=== PATIENT | male | born 1975 | race Caucasian/White ===

== ENCOUNTER 2016-05-26 13:48 | Emergency (ER) | payer BC, OTHER ==
[2016-05-26 13:53] VITALS: BP 155/95; PULSE 90; RESP 20; TEMP 98
[2016-05-26] MEDS ORDERED: methylPREDNISolone SOD SUCCI 125 MG/2 ML VIAL IM ONE (14:09)
--- NOTE | 2016-05-26 14:25 | ED ---
Back Pain HPI - General Chief Complaint: Back Pain/Injury Stated Complaint: Back Pain Time Seen by Provider: 05/26/16 13:57 Source: patient, RN notes reviewed Limitations: no limitations - History of Present Illness Initial Comments: Patient is a 40-year-old male presents to the emergency room for evaluation of low back pain. Patient states he has a history of sciatica. Patient states he woke up on Monday morning with worsening low back pain radiating down his right leg. Patient denies recent heavy lifting or changes in physical activity. Patient does state on Monday night he did twist his back a weird way but did not notice any significant pain. Patient states that he went to [facility] on Monday and was given [place], ibuprofen and Valium. Patient states those medications are not helping his symptoms. Patient states he has an appointment with his primary care provider tomorrow but he needs something to relieve his pain now. Patient denies fecal incontinence. Patient denies urine incontinence. Patient denies saddle anesthesia. Patient denies urinary retention. Patient states he is having pain radiating from the right side of his back down the posterior portion of his leg. Patient denies any numbness or tingling in his legs. - Related Data Home Medications Medication Instructions Recorded Confirmed Diazepam [Valium] 5 mg PO BID 05/26/16 05/26/16 HYDROcodone/APAP 5-325MG [[place] 1 tab PO Q6HR PRN 05/26/16 05/26/16 5-325] Ibuprofen [Motrin] 800 mg PO TID 05/26/16 05/26/16 Previous Rx's Medication Instructions Recorded predniSONE 50 mg PO DAILY #4 tab 05/26/16 Allergies Allergy/AdvReac Type Severity Reaction Status Date / Time No Known Allergies Allergy Verified 05/26/16 13:53 Review of Systems ROS Statement: Those systems with pertinent positive or pertinent negative responses have been documented in the HPI. ROS Other: All systems not noted in ROS Statement are negative. Past Medical History Past Medical History: No Reported History Additional Past Medical History / Comment(s): back pain History of Any Multi-Drug Resistant Organisms: None Reported Past Surgical History: No Surgical Hx Reported Past Psychological History: No Psychological Hx Reported Smoking Status: Current every day smoker Past Alcohol Use History: Occasional Past Drug Use History: None Reported General Exam - General Exam Comments Initial Comments: Laying in exam room, uncomfortable secondary to pain, no acute distress. Limitations: no limitations General appearance: alert, in no apparent distress Head exam: Present: atraumatic, normocephalic, normal inspection Eye exam: Present: normal appearance ENT exam: Present: normal exam Neck exam: Present: normal inspection Respiratory exam: Absent: respiratory distress Extremities exam: Present: normal inspection Back exam: Present: normal inspection, vertebral tenderness (right lumbosacral) Expanded Back exam: Positive Straight Leg Raise: Right, Negative Straight Leg Raising: Left Neurological exam: Present: alert, oriented X3, CN II-XII intact, normal gait Psychiatric exam: Present: normal affect, normal mood Skin exam: Present: warm, dry, intact, normal color. Absent: rash Course Vital Signs 05/26/16 13:51 Temperature 98.0 F Pulse Rate 90 Respiratory 20 Rate Blood Pressure 155/95 O2 Sat by Pulse 99 Oximetry Medical Decision Making - Medical Decision Making Patient is a 40-year-old male presents to the emergency room for evaluation of right-sided low back pain. Patient's symptoms consistent with sciatica. Patient has no neuro deficits. Patient is already on [place], Valium and ibuprofen. Agreed to give patient Solu-Medrol and pain medication while he was here. Patient states he has an appointment with his primary care provider tomorrow for follow-up at 10 AM. Advised patient to keep that appointment for further evaluation. Patient states he understands everything was discussed with him. Return parameters discussed. Case discussed with Dr. George. Disposition Clinical Impression: Right sided sciatica Disposition: HOME SELF-CARE Condition: Good Instructions: Sciatica (ED), Acute Low Back Pain (ED) Additional Instructions: Warm moist heat. Continue taking prescribed medications as needed. Take prednisone as directed. Please follow up with primary care provider in 24-48 hours for reevaluation. If any new symptom arises or symptoms worsen, return to ER as soon as possible. Prescriptions: predniSONE 50 mg PO DAILY #4 tab Referrals: Alessandra Perez MD [Primary Care Provider] - 1-2 days Time of Disposition: 14:23
[2016-05-26] MEDS ORDERED: HYDROmorphone 1 MG/ML 1 ML SYRINGE IM STA (14:31)
== END 2016-05-26 14:45 | disposition home or self-care (01) ==
LOC: EC 13:48
DX: M54.41 Lumbago with sciatica, right side (principal); F17.200 Nicotine dependence, unspecified, uncomplicated; Z79.899 Other long term (current) drug therapy; Z79.1 Long term (current) use of non-steroidal anti-inflammatories (NSAID)
CPT/HCPCS: 96372 ×2; 99282; J2930; J1170

== ENCOUNTER 2016-06-13 15:15 | Emergency (ER) | payer OTHER ==
[2016-06-13 15:34] VITALS: BP 137/84; PULSE 98; RESP 16; TEMP 98.3
--- NOTE | 2016-06-13 16:04 | ED ---
General Adult HPI - General Chief complaint: Back Pain/Injury Stated complaint: Back Pain Time Seen by Provider: 06/13/16 15:40 Source: patient, RN notes reviewed Mode of arrival: ambulatory Limitations: no limitations - History of Present Illness Initial comments: This is a 40-year-old male who presents with chronic right sciatica pain and back problems. Patient states he was treated 2 weeks ago for this problem and is currently taking Hamilton and Valium. Patient states he is concerned because he developed urinary leaking with coughing or sneezing, intermittent groin numbness when he is laying flat, posterior right calf numbness and erectile dysfunction. Patient states this has only happened in the past 2 days. Patient states he has sensation in the right calf but it feels different than the left. Patient denies any fall or recent injury. Patient states he had an MRI of his spine on June 03 and follows up with his primary care physician for these problems. Patient states he called his doctor today and was told to come in for evaluation. Patient is able to ambulate without difficulty and denies any weakness or tingling in the lower extremities. Patient denies any recent fever, chills, shortness breath, chest pain, abdominal pain, nausea/ vomiting/diarrhea, hematuria, headache, or visual changes, or any other complaints. - Related Data Home Medications Medication Instructions Recorded Confirmed Diazepam [Valium] 5 mg PO BID PRN 05/26/16 06/13/16 HYDROcodone/APAP 7.5-325MG [[place] 1 tab PO Q6HR PRN 06/13/16 06/13/16 7.5-325] Previous Rx's Medication Instructions Recorded predniSONE 50 mg PO DAILY 5 Days 06/13/16 Allergies Allergy/AdvReac Type Severity Reaction Status Date / Time No Known Allergies Allergy Verified 06/13/16 15:42 Review of Systems ROS Statement: Those systems with pertinent positive or pertinent negative responses have been documented in the HPI. ROS Other: All systems not noted in ROS Statement are negative. Past Medical History Past Medical History: No Reported History Additional Past Medical History / Comment(s): back pain History of Any Multi-Drug Resistant Organisms: None Reported Past Surgical History: No Surgical Hx Reported Past Psychological History: No Psychological Hx Reported Smoking Status: Current every day smoker Past Alcohol Use History: Occasional Past Drug Use History: Marijuana General Exam - General Exam Comments Initial Comments: General: The patient is awake and alert, in no distress, and does not appear acutely ill. Neck: The neck is supple, there is no tenderness or JVD. Cardiovascular: There is a regular rate and rhythm. No murmur, rub or gallop is appreciated. Respiratory: Lungs are clear to auscultation, respirations are non-labored, breath sounds are equal. No wheezes, stridor, rales, or rhonchi. Musculoskeletal: Patient has tenderness to the lumbar spine. Full range of motion, strength 5/5 and Sensation slightly diminished to the right side groin but patient is still able to sense pressure. Posterior tibial pulses 2+ bilaterally. Rectal: Good rectal tone and anal wink. Patient reports diminished sensation to the right saddle area, but is still able to sense pressure. Neurological: A&O x 3. CN II-XII intact, There are no obvious motor or sensory deficits. Coordination appears grossly intact. Speech is normal. Skin: Skin is warm and dry and no rashes or lesions are noted. Psychiatric: Normal mood and affect. Limitations: no limitations Course Vital Signs 06/13/16 15:31 Temperature 98.3 F Pulse Rate 98 Respiratory 16 Rate Blood Pressure 137/84 O2 Sat by Pulse 96 Oximetry Medical Decision Making - Medical Decision Making This is a 40-year-old who presents with new neurologic symptoms from his chronic back and sciatic pain. On physical exam Patient has tenderness to the lumbar spine into the right side posterior hip. Full range of motion, strength 5/5 and Sensation slightly diminished to the right side groin but patient is still able to sense pressure. Posterior tibial pulses 2+ bilaterally. Rectal: Good rectal tone and anal wink. Patient reports diminished sensation to the right saddle area, but is still able to sense pressure. A CT of the lumbar spine without contrast was done and reviewed showing:Correlate for S1 radiculopathy. Degenerative disc disease as described. Additional findings above. Reported by Dr. Gore. At this time patient was given 125 mg of Solu- Medrol IM. I discussed this case with attending physician Dr. Astudillo. On-call orthopedic physician Dr. Angeles was contacted and I discussed this case with him. Dr. Angeles states patient can follow-up with Dr. Orozco tomorrow morning as an outpatient. Patient will be put on prednisone 50 mg for 5 days. I discussed the results with patient. Patient is comfortable with discharge home at this time. I discussed return parameters at length. I discussed continuation of the patient's Hamilton and Valium that he already has prescribed. Discussed that patient needs to follow-up with orthopedics, Dr. Orozco, tomorrow morning or return to the [facility] for any worsening symptoms or for any further concerns. Patient was receptive to this plan and patient will be discharged home. I discussed his case with attending physician Dr. Astudillo who agrees the plan as stated above. Disposition Clinical Impression: Lumbosacral radiculopathy at S1 Disposition: HOME SELF-CARE Condition: Good Instructions: Lumbar Radiculopathy (ED) Additional Instructions: Please follow-up with orthopedics Dr. Orozco tomorrow morning of [facility]. This was discussed with orthopedic physician Dr. Angeles. Please continue the Hamilton and Valium that he already has prescribed. Please take prednisone as prescribed. Please return to the [facility] for any worsening symptoms or for any further concerns. Prescriptions: predniSONE 50 mg PO DAILY 5 Days Referrals: Alessandra Perez MD [Primary Care Provider] - 1-2 days Robin Angeles MD [STAFF PHYSICIAN] - 1-2 days Alyce Orozco DO [Doctor of Osteopathic Medicine] - 1-2 days Time of Disposition: 17:34
--- NOTE | 2016-06-13 16:48 | CT ---
EXAMINATION TYPE: CT lumbar spine wo con DATE OF EXAM: 06/13/2016 4:23 PM COMPARISON: NONE HISTORY: Low back pain with bilateral leg pain and numbness getting worse for months CT DLP: 553.3 mGycm Automated exposure control for dose reduction was used. An unenhanced CT of the lumbar spine was performed. Bone and soft tissue window settings are submitt ed as well as coronal and sagittal reconstructions. FINDINGS: L1-L2: Normal disc space height. No disc herniation protrusion or central stenosis. No facet joint arthropathy. No evidence for foraminal encroachment. L2-L3: Normal disc space height. No disc herniation protrusion or central stenosis. No facet joint arthropathy. No evidence for foraminal encroachment. L3-L4: Facet arthropathy with hypertrophy of ligamentum flavum may cause some posterior lateral mass effect on the thecal sac. L4-L5: Broad-based posterior disc bulge contacts the anterior thecal sac, mild central canal stenosis is suspected. Circumferential extension may cause some foraminal encroachment left greater than righ t. Suspect some lateral recess stenosis due to facet arthropathy with hypertrophy of the ligamentum f lavum. L5-S1: There is a right posterior paracentral disc herniation which likely contacts the right S1 nerv e root. Circumferential extension of endplate disc complex results in some mild foraminal encroachmen t left greater than right. Lumbar vertebral bodies show preserved height and alignment. There is loss of disc height at L4-5. Mu ltilevel spondylosis present. There is multilevel Schmorl's node formation. Suspect there are fatty i nfiltration changes of the liver. IMPRESSION: Correlate for right S1 radiculopathy. Degenerative disc disease as described. Additional findings abo ve.
[2016-06-13] MEDS ORDERED: methylPREDNISolone SOD SUCCI 125 MG/2 ML VIAL IM ONE (16:54)
== END 2016-06-13 17:49 | disposition home or self-care (01) ==
LOC: EC 15:15
DX: M54.17 Radiculopathy, lumbosacral region (principal); M51.37 Other intervertebral disc degeneration, lumbosacral region; R05 Cough; R20.0 Anesthesia of skin; F17.200 Nicotine dependence, unspecified, uncomplicated
CPT/HCPCS: 99284; 96372; 72131; J2930

== ENCOUNTER 2016-06-27 06:37 | Emergency (ER) | payer OTHER ==
[2016-06-27 06:45] VITALS: RESP 18
[2016-06-27] MEDS ORDERED: SODIUM CHLORIDE 0.9% 500 ML IV STA (07:34)
[2016-06-27] MEDS ORDERED: SODIUM CHLORIDE 0.9% 1,000 ML IV STA (07:34)
[2016-06-27] MEDS ORDERED: PANTOPRAZOLE 40 MG/10 ML VIAL IVP STA (07:34)
[2016-06-27] MEDS ORDERED: ONDANSETRON 4 MG/2 ML VIAL IVP STA (07:34)
[2016-06-27] MEDS ORDERED: LORazepam 2 MG/ML SYRINGE IV STA (07:39)
[2016-06-27 07:57] LABS: Basophils % (A) 0 %; CH 34.2; CHCM 32.9; Eosinophils % (A) 0 %; HCT 44.7 % (39.0-53.0); HDW 2.13; HGB 14.5 gm/dL (13.0-17.5); Luc # (Auto) 0.05; Luc % (Auto) 1; Lymphocytes # (A) 0.5 k/uL (1.0-4.8); Lymphocytes % (A) 5 %; MCHC 32.5 g/dL (31.0-37.0); MCV 104.7 fL (80.0-100.0); Macrocytosis Slight; Mean Platelet Volume 7.3; Monocytes # (A) 0.1 k/uL (0-1.0); Monocytes % (A) 2 %; Neutrophils # (A) 8.5 k/uL (1.3-7.7); Neutrophils % (A) 92 %; RBC 4.27 m/uL (4.30-5.90); RDW 13.4 % (11.5-15.5); WBC 9.2 k/uL (3.8-10.6); WBC (Perox) 9.31
[2016-06-27 08:05] LABS: ALT 142 U/L (21-72); AST 125 U/L (17-59); Alkaline Phosphatase 84 U/L (38-126); Anion Gap 12 mmol/L; Blood Urea Nitrogen 19 mg/dL (9-20); Calcium 9.3 mg/dL (8.4-10.2); Carbon Dioxide 23 mmol/L (22-30); Chloride 108 mmol/L (98-107); Glucose 102 mg/dL (74-99); Magnesium 2.3 mg/dL (1.6-2.3); Non-African American GFR(MDRD) >60 (>60 ml/min/1.73 sqM); Phosphorous 4.1 mg/dL (2.5-4.5); Potassium 4.6 mmol/L (3.5-5.1); Sodium 143 mmol/L (137-145); Total Bilirubin 0.5 mg/dL (0.2-1.3)
[2016-06-27 08:08] LABS: Partial Thromboplastin Time 22.9 sec (22.0-30.0); Prothrombin Time 9.9 sec (9.0-12.0)
[2016-06-27 08:13] LABS: Alcohol 199 mg/dL
[2016-06-27 08:24] LABS: Creatine Kinase 144 U/L (55-170)
[2016-06-27 08:36] LABS: Troponin I <0.012 ng/mL (0.000-0.034)
[2016-06-27 08:46] LABS: Creatine Kinase MB 2.5 ng/mL (0.0-2.4)
--- NOTE | 2016-06-27 09:08 | ED ---
General Adult HPI - General Chief complaint: GI Bleed Stated complaint: BACK PAIN Time Seen by Provider: 06/27/16 07:17 Source: patient, RN notes reviewed, old records reviewed Mode of arrival: ambulatory Limitations: no limitations - History of Present Illness Initial comments: This is a 40-year-old male ER for evaluation. Patient's a presents for evaluation of blood in his stool. Patient states he had some episodic back pain. Of chronic back pain and some blood in his stool today. No real doubt pain no nausea vomiting no diarrhea. No recent complaints. Patient does admit to alcohol, but just a few beers. Patient states symptoms started last night was just one episode. Patient states he does have a history of hemorrhoids - Related Data Home Medications Medication Instructions Recorded Confirmed Acetaminophen [Tylenol] 1,500 mg PO ONCE PRN 06/27/16 06/27/16 HYDROcodone/APAP 5-325MG [[place] 1 tab PO Q6H PRN 06/27/16 06/27/16 5-325] Allergies Allergy/AdvReac Type Severity Reaction Status Date / Time No Known Allergies Allergy Verified 06/27/16 07:09 Review of Systems ROS Statement: Those systems with pertinent positive or pertinent negative responses have been documented in the HPI. ROS Other: All systems not noted in ROS Statement are negative. Past Medical History Past Medical History: No Reported History Additional Past Medical History / Comment(s): back pain History of Any Multi-Drug Resistant Organisms: None Reported Past Surgical History: No Surgical Hx Reported Past Psychological History: No Psychological Hx Reported Smoking Status: Current every day smoker Past Alcohol Use History: Occasional Past Drug Use History: Marijuana General Exam Limitations: no limitations General appearance: alert, in no apparent distress, appears intoxicated Head exam: Present: atraumatic, normocephalic, normal inspection Eye exam: Present: normal appearance, PERRL, EOMI. Absent: scleral icterus, conjunctival injection, periorbital swelling ENT exam: Present: normal exam, mucous membranes moist Neck exam: Present: normal inspection. Absent: tenderness, meningismus, lymphadenopathy Respiratory exam: Present: normal lung sounds bilaterally. Absent: respiratory distress, wheezes, rales, rhonchi, stridor Cardiovascular Exam: Present: regular rate, normal rhythm, normal heart sounds. Absent: systolic murmur, diastolic murmur, rubs, gallop, clicks GI/Abdominal exam: Present: soft, normal bowel sounds. Absent: distended, tenderness, guarding, rebound, rigid Extremities exam: Present: normal inspection, full ROM, normal capillary refill. Absent: tenderness, pedal edema, joint swelling, calf tenderness Back exam: Present: normal inspection Neurological exam: Present: alert, oriented X3, CN II-XII intact Psychiatric exam: Present: normal affect, normal mood Skin exam: Present: warm, dry, intact, normal color. Absent: rash Course Vital Signs 06/27/16 06:40 Temperature 97.2 F L Pulse Rate 105 H Respiratory 18 Rate Blood Pressure 141/85 O2 Sat by Pulse 97 Oximetry - Reevaluation(s) Reevaluation #1: 06/27/16 09:07 Patient consult regarding alcohol cessation, level of intoxication, told that he will need to get a ride home Medical Decision Making - Medical Decision Making 40 male year for evaluation blood in stool, positive hemorrhoids, hemoglobin stable, vital signs are normal and stable, patient okay for discharge - Lab Data Result diagrams: 06/27/16 07:00 06/27/16 07:00 Lab Results 06/27/16 06/27/16 06/27/16 Range/Units 07:00 07:00 07:00 WBC 9.2 (3.8-10.6) k/uL RBC 4.27 L (4.30-5.90) m/uL Hgb 14.5 (13.0-17.5) gm/dL Hct 44.7 (39.0-53.0) % MCV 104.7 H (80.0-100.0) fL MCH 34.0 (25.0-35.0) pg MCHC 32.5 (31.0-37.0) g/dL RDW 13.4 (11.5-15.5) % Plt Count 238 (150-450) k/uL Neutrophils % 92 % Lymphocytes % 5 % Monocytes % 2 % Eosinophils % 0 % Basophils % 0 % Neutrophils # 8.5 H (1.3-7.7) k/uL Lymphocytes # 0.5 L (1.0-4.8) k/uL Monocytes # 0.1 (0-1.0) k/uL Eosinophils # 0.0 (0-0.7) k/uL Basophils # 0.0 (0-0.2) k/uL Macrocytosis Slight PT (9.0-12.0) sec INR (<1.1) APTT (22.0-30.0) sec Sodium 143 (137-145) mmol/L Potassium 4.6 (3.5-5.1) mmol/L Chloride 108 H (98-107) mmol/L Carbon Dioxide 23 (22-30) mmol/L Anion Gap 12 mmol/L BUN 19 (9-20) mg/dL Creatinine 0.73 (0.66-1.25) mg/dL Est GFR (MDRD) Af Amer >60 (>60 ml/min/1.73 sqM) Est GFR (MDRD) Non-Af >60 (>60 ml/min/1.73 sqM) Glucose 102 H (74-99) mg/dL Calcium 9.3 (8.4-10.2) mg/dL Phosphorus 4.1 (2.5-4.5) mg/dL Magnesium 2.3 (1.6-2.3) mg/dL Total Bilirubin 0.5 (0.2-1.3) mg/dL AST 125 H (17-59) U/L ALT 142 H (21-72) U/L Alkaline Phosphatase 84 (38-126) U/L Total Creatine Kinase 144 (55-170) U/L CK-MB (CK-2) 2.5 H* (0.0-2.4) ng/mL CK-MB (CK-2) Rel Index 1.7 Troponin I <0.012 (0.000-0.034) ng/mL Total Protein 7.0 (6.3-8.2) g/dL Albumin 3.9 (3.5-5.0) g/dL Lipase 279 (23-300) U/L Serum Alcohol 199 mg/dL Blood Type Blood Type Recheck Antibody Screen Spec Expiration Date 06/27/16 06/27/16 Range/Units 07:00 07:00 WBC (3.8-10.6) k/uL RBC (4.30-5.90) m/uL Hgb (13.0-17.5) gm/dL Hct (39.0-53.0) % MCV (80.0-100.0) fL MCH (25.0-35.0) pg MCHC (31.0-37.0) g/dL RDW (11.5-15.5) % Plt Count (150-450) k/uL Neutrophils % % Lymphocytes % % Monocytes % % Eosinophils % % Basophils % % Neutrophils # (1.3-7.7) k/uL Lymphocytes # (1.0-4.8) k/uL Monocytes # (0-1.0) k/uL Eosinophils # (0-0.7) k/uL Basophils # (0-0.2) k/uL Macrocytosis PT 9.9 (9.0-12.0) sec INR 1.0 (<1.1) APTT 22.9 (22.0-30.0) sec Sodium (137-145) mmol/L Potassium (3.5-5.1) mmol/L Chloride (98-107) mmol/L Carbon Dioxide (22-30) mmol/L Anion Gap mmol/L BUN (9-20) mg/dL Creatinine (0.66-1.25) mg/dL Est GFR (MDRD) Af Amer (>60 ml/min/1.73 sqM) Est GFR (MDRD) Non-Af (>60 ml/min/1.73 sqM) Glucose (74-99) mg/dL Calcium (8.4-10.2) mg/dL Phosphorus (2.5-4.5) mg/dL Magnesium (1.6-2.3) mg/dL Total Bilirubin (0.2-1.3) mg/dL AST (17-59) U/L ALT (21-72) U/L Alkaline Phosphatase (38-126) U/L Total Creatine Kinase (55-170) U/L CK-MB (CK-2) (0.0-2.4) ng/mL CK-MB (CK-2) Rel Index Troponin I (0.000-0.034) ng/mL Total Protein (6.3-8.2) g/dL Albumin (3.5-5.0) g/dL Lipase (23-300) U/L Serum Alcohol mg/dL Blood Type B Positive Blood Type Recheck CABO Indicated Antibody Screen NEGATIVE Spec Expiration Date 06/30/2016 - 2299 Disposition Clinical Impression: Alcohol intoxication, Gastrointestinal hemorrhage Disposition: HOME SELF-CARE Condition: Good Instructions: Gastrointestinal Bleeding (ED) Referrals: Alessandra Perez MD [Primary Care Provider] - 1-2 days
[2016-06-27 09:41] VITALS: BP 145/71; PULSE 96; TEMP 98
== END 2016-06-27 09:41 | disposition home or self-care (01) ==
LOC: EC 06:37
DX: K92.2 Gastrointestinal hemorrhage, unspecified (principal); F10.129 Alcohol abuse with intoxication, unspecified; F17.200 Nicotine dependence, unspecified, uncomplicated
CPT/HCPCS: 36415; 86900; 86901; 80053; 82550; 82553; 83690; 83735; 84100; 84484; 85025; 85610; 85730; 86850; 80320; 96361; 96374; 96375 ×2; 99284; J2060; J2405; C9113

== ENCOUNTER → 2016-06-28 | Outpatient (CLI) | payer OTHER ==
[2016-06-21 12:39] VITALS: BMI 27.9
[2016-06-28 12:42] VITALS: BP 132/84; PULSE 102; RESP 18; TEMP 97.6
--- NOTE | 2016-06-28 13:32 | P.HPIM ---
History of Present Illness H&P Date: 06/28/16 Chief Complaint: low back pain This is a 40-year-old patient referred by Dr. Perez for chronic pain in low back with radiation to bilateral lower extremities, R >> L, and with right- sided numbness/tingling all the way down to toes and burning sensation in RLE. Patient does have some pain in LLE also but stops above knee. Patient has been taking medications from primary care physician including [place] and Valium medications with some relief. Patient denies adverse drug effects from medications. Patient also denies new-onset weakness, bowel/bladder incontinence , or any other signs or symptoms of cauda equina syndrome. There are no signs of acute intoxication, and no indications of medication diversion or overuse. Patient notes that pain worsens significantly with standing and working, and improves with rest, ice and medication. Patient has been unable to work due to pain. Patient has used several types of medications for pain, including NSAIDS, OPIOIDS, TRAMADOL, ANTIDEPRESSANTS, and BENZODIAZEPINES. Patient HAS NOT had surgery. Patient HAS NOT had injections previously. Patient HAS had physical therapy recently with only mild relief. In addition to above, 13-point review of systems is also negative for chest pain , shortness of breath, changes in vision, changes in hearing, new onset weakness , abdominal pain, diarrhea, extreme fatigue, malaise, fever, skin changes, homicidal or suicidal ideation, or bowel or bladder incontinence. Vital Signs: Reviewed in EMR Gen: WDWN, AAOx3, NAD HEENT: NCAT, EOMI, hearing grossly normal Pulm: resp unlabored Abd: soft, NT, ND Neck: supple, trachea midline ROM in flexion lumbar spine: reduced ROM in extension lumbar spine: reduced Lumbar paravertebral tenderness: + Facet loading: ++ bilateral SI joint tenderness: + R side Ned's test: + R side Straight leg raise: + RLE at 10 degrees Lower extremity: decreased ROM dorsiflexion/plantarflexion strength, hip flexion/extension, and knee flexion/extension secondary to pain Neuro: CN II-XII grossly intact, muscle strength lower extremities PRESERVED Past Medical History Past Medical History: No Reported History Additional Past Medical History / Comment(s): back pain History of Any Multi-Drug Resistant Organisms: None Reported Past Surgical History: No Surgical Hx Reported Additional Past Surgical History / Comment(s): "3 pain block shots", cortisone shot rt hip Past Anesthesia/Blood Transfusion Reactions: No Reported Reaction Past Psychological History: No Psychological Hx Reported Smoking Status: Current every day smoker Past Alcohol Use History: Occasional Additional Past Alcohol Use History / Comment(s): smoker since age 14- 1 1/2 ppd , 6 beers/day Past Drug Use History: Marijuana Additional Drug Use History / Comment(s): smokes marijuana nightly - Past Family History Mother Family Medical History: Deep Vein Thrombosis (DVT) Medications and Allergies Home Medications Medication Instructions Recorded Confirmed Type Acetaminophen [Tylenol] 1,500 mg PO ONCE PRN 06/27/16 06/27/16 History HYDROcodone/APAP 5-325MG [[place] 1 tab PO Q6H PRN 06/27/16 06/27/16 History 5-325] Allergies Allergy/AdvReac Type Severity Reaction Status Date / Time No Known Allergies Allergy Verified 06/28/16 12:28 Physical Exam Vitals: Vital Signs Temp Pulse Resp BP Pulse Ox 06/28/16 12:30 97.6 F 102 H 18 132/84 94 L Results Comments: Computed tomography scan of lumbar spine dated 06/13/2016 demonstrates facet joint arthropathy with hypertrophy of the ligamentum flavum and causing some posterior lateral mass effect on the thecal sac at the L3-L4 level. At the L4- L5 level there is a broad-based posterior disc bulge contacting the anterior thecal sac and causing mild central canal stenosis. There is some foraminal encroachment on the left side greater than the right side and there is also some lateral recess stenosis secondary to facet arthropathy with hypertrophy of ligamentum flavum. At the L5-S1 level there is a right posterior paracentral disc herniation contacting the right S1 nerve root. Assessment and Plan (1) Spinal stenosis of lumbar region Status: Chronic (2) Lumbar radiculopathy Status: Chronic (3) Lumbosacral spondylosis without myelopathy Status: Chronic Plan: Plan: 1. Explanation: Opioid and psychological risk scores were reviewed. Diagnoses , prognoses, and multiple treatment options including but not limited to physical therapy, interventional therapies, adjuvant medical therapies, narcotic medication therapies, and surgery were discussed with the patient and all questions were answered to the patient's satisfaction. 2. Opioid agreement: no opioids prescribed today 3. Counseling: The patient was counseled extensively on MARIJUANA USE, BODY MASS INDEX, EXERCISE. Specifically, the patient was instructed regarding the importance of marijuana, obesity, and exercise in the context of both chronic pain and overall health. 4. Procedures: LESI series 5. Consultations: none 6. Investigations: none 7. Medications: none prescribed 8. Disposition: f/u for procedures as indicated. If patient gets limited relief from LESI, consider TFESI; if patient has limited relief from both, consider neurosurgical referral given extent of disc herniations. PQRS measures: 1-Patient's medications are documented in the chart. 2-Tobacco use is positive, counseling given 3-Patient has not had a pneumococcal vaccine. 4-Advanced care planning discussed, patient unable to give. 5-Opioid contract signed with the patient. 6-Pain positive, follow-up visit or procedure scheduled 7-Patient's blood pressure measured and documented, and patient will follow up with the primary care due to hypertension. 8-Patient's weight was measured, and body mass index ABOVE the normal limits, and counseling was done. Patient instructed to follow up with PCP. 9-Patient WAS NOT identified as an unhealthy alcohol user. Time with Patient: Greater than 30
== END | disposition home or self-care (01) ==
LOC: PNWHC3 12:25
PROVIDERS: ATTEND Anesthesiology
DX: M48.06 Spinal stenosis, lumbar region (principal); M54.16 Radiculopathy, lumbar region; M47.816 Spondylosis without myelopathy or radiculopathy, lumbar region; M46.96 Unspecified inflammatory spondylopathy, lumbar region; M51.27 Other intervertebral disc displacement, lumbosacral region; F17.200 Nicotine dependence, unspecified, uncomplicated; Z79.899 Other long term (current) drug therapy; I10 Essential (primary) hypertension; F12.90 Cannabis use, unspecified, uncomplicated
CPT/HCPCS: 99211

== ENCOUNTER 2016-07-27 07:02 | Day surgery (SDC) | payer OTHER ==
[2016-07-25 09:51] VITALS: BMI 25.7
[2016-07-27] MEDS ORDERED: LACTATED RINGERS 1,000 ML IV SCH (07:30)
[2016-07-27 08:25] VITALS: RESP 18; TEMP 97.6
[2016-07-27] MEDS ORDERED: LIDOCAINE 1% 20 ML VIAL (10MG/ML) FOR IV START INTRADERMA ONE (08:27)
[2016-07-27] MEDS ORDERED: TRIAMCINOLONE ACETONIDE 40 MG/ML 1 ML VIAL ONE (09:11)
[2016-07-27] MEDS ORDERED: fentaNYL (PF) 50 MCG/ML 2 ML AMP ONE (09:11)
[2016-07-27] MEDS ORDERED: IOHEXOL 180 MG/ML 1 ML ML ONE (09:11)
[2016-07-27] MEDS ORDERED: BUPIVACAINE (PF) 0.25% 30 ML VIAL ONE (09:11)
[2016-07-27] MEDS ORDERED: MIDAZOLAM 2 MG/2 ML VIAL ONE (09:11)
[2016-07-27] MEDS ORDERED: IV FLUID CONTINUATION 1,000 ML IV ONE (09:35)
--- NOTE | 2016-07-27 09:36 | P.PCN ---
Date of Procedure: 07/27/16 Preoperative Diagnosis: #1 severe persistent low back pain #2 right lumbar radiculopathy with pain and numbness #3 degenerative disc disease with multiple level disc herniation and neural foraminal stenosis Postoperative Diagnosis: Same as preoperative diagnoses Procedure(s) Performed: Translumbar epidural injection at L4 5 with local anesthetic and corticosteroid utilizing fluoroscopic assistance for accurate and appropriate needle placement Anesthesia: MAC Surgeon: Juancarlos Ram Estimated Blood Loss (ml): 5 IV fluids (ml): 460 Urine output (ml): 0 Pathology: none sent Condition: stable Disposition: PACU Indications for Procedure: Please refer to preoperative diagnoses Description of Procedure: The patient was brought to the [facility] procedure area where the patient was changed into a surgical gown. They were then brought to the [facility] procedure room. Full external monitors were placed and the patient was positioned in the prone position . Full external monitors were placed and supplemental nasal oxygen at 2 L/m was applied. A wide field DuraPrep was performed to the lower back area which was draped in the usual sterile technique. Fluoroscopic assistance was utilized to identify the skin and subcutaneous tissue immediately overlying the [] intervertebral space. In the midline, 6 mL of 1% preservative free Xylocaine was infiltrated into the skin and into the superficial and deep subcutaneous tissue at the [] vertebral level in a field block technique. Through the previously anesthetized area, a #20-gauge Tuohy needle was passed until the tip of the Tuohy needle was felt to be in the posterior ligamentous complex. At this point in time the epidural needle stylet was removed and a [id number] epidural syringe was attached. Utilizing the [id number] technique, the lumbar epidural space at the [] level was located with ease. Following confirmation of the needle location in the lumbar epidural space, the epidural syringe was detached and no blood or cerebrospinal fluid was noted to be coming from the hub of the epidural needle. Approximately 5 mL of contrast solution was injected through the epidural needle. Once appropriate spread of the contrast was noted with fluoroscopic imaging, the patient was ready for the therapeutic injectate. At this point a solution containing 80 mg of Depo-Medrol, 5 mL of 0.25% preservative free Marcaine, and 3 mL of 0.9% preservative free normal saline was injected into the lumbar epidural space through the epidural needle after negative aspiration. The patient tolerated the injection of the therapeutic substance without difficulty or complication whatsoever. Following the completion of the injection the needle was removed and hemostasis was noted. A sterile dressing was applied.
--- NOTE | 2016-07-27 09:39 | FL ---
EXAMINATION TYPE: FL guided pain mgmt statistic DATE OF EXAM: 07/27/2016 9:33 AM HISTORY: Pain LESI, 2sec fl time
[2016-07-27 09:58] VITALS: BP 129/86; PULSE 101
== END 2016-07-27 10:18 | disposition home or self-care (01) ==
LOC: ORPAIN 07:02
PROVIDERS: ATTEND Anesthesiology
DX: M51.16 Intervertebral disc disorders with radiculopathy, lumbar region (principal); M48.06 Spinal stenosis, lumbar region
CPT/HCPCS: 62323; 99152; J2250; J3301; Q9965; J3010

== ENCOUNTER → 2016-08-16 | Outpatient (CLI) | payer OTHER ==
[2016-08-16 15:50] VITALS: BP 123/66; PULSE 116; RESP 16
--- NOTE | 2016-08-17 07:38 | P.CONS ---
History of Present Illness - Reason for Consult Consult date: 08/16/16 - History of Present Illness this is follow-up visit for this 40 years old male with a chronic history of severe low back pain with radiation to the lower extremity R>L and he was diagnosed with lumbar radiculopathy/lumbar spinal stenosis/lumbo sacral spondylosis, patient continued to have severe low back pain with numbness and tingling sensation in the lower extremity, he had lumbar epidural steroid injection done several weeks ago which helped , her short-term, and he continued use [place] 5/325 when necessary, he denies any side effect of the medication he denies any fever or night sweats and no change in the bowel movement or urination, his visual analog scale 6/10 increased with activity Past Medical History Past Medical History: No Reported History Additional Past Medical History / Comment(s): back pain History of Any Multi-Drug Resistant Organisms: None Reported Past Surgical History: No Surgical Hx Reported Additional Past Surgical History / Comment(s): "3 pain block shots", cortisone shot rt hip Past Anesthesia/Blood Transfusion Reactions: No Reported Reaction Past Psychological History: No Psychological Hx Reported Smoking Status: Current every day smoker Past Alcohol Use History: Occasional Additional Past Alcohol Use History / Comment(s): smoker since age 14- 1 1/2 ppd , 6 beers/day Past Drug Use History: Marijuana Additional Drug Use History / Comment(s): STATES THAT HE QUIT SMOKING MARIJUANA - Past Family History Mother Family Medical History: Deep Vein Thrombosis (DVT) Sister(s) Family Medical History: Cancer Additional Family Medical History / Comment(s): BREAST Medications and Allergies Home Medications Medication Instructions Recorded Confirmed Type HYDROcodone/APAP 5-325MG [[place] 1 tab PO Q6H PRN 06/27/16 08/16/16 History 5-325] chlordiazePOXIDE HCl [Librium] 25 mg PO TID 08/16/16 08/16/16 History Allergies Allergy/AdvReac Type Severity Reaction Status Date / Time No Known Allergies Allergy Verified 08/16/16 15:36 Physical Exam Vitals: Vital Signs Pulse Resp BP Pulse Ox 08/16/16 15:40 116 H 16 123/66 97 Intake and Output 08/16/16 08/17/16 08/17/16 22:59 06:59 14:59 Other: Weight 85.275 kg Physical Examinations : 1-Constitutiona : Cooperative , not in acute distress . 2-HEENT : nech ; supple , no Lymphadenopathy , no Thyromegaly , normal thyroid size . eyes : no ptosis , no icterus, no photophobia . ENT : normal of hearing , normal oropharynx , no Thrush . 3- Respiratory : Chest clear to auscultations Bilaterally , no wheezing , no Rhonchi . 4- Cardiovascular : regular rate and rhythem , S1 , S2 , no S3 , no S4. 5- Gastrointestinal : abdomen soft no tenderness , bowel sounds positive all four quadrents , no organomegally . 6- Genitourinary : Defferred . 7- neurologic : Cranial nerve II to XII intact , no focal neurological deffecit . 8-psychatric : alert , oriented X 3 , appropriate affect , intact judgment and insight . 9-Lymphatic : no Lymphadenopathy . 10- musculoskeltal : exams of the Lumber spine = normal moter stegnth lower extremities ,thigh and legs .5/5 deep tendon reflexes : normal Knee Jerk , normal ankle Jerk . positive lumber facet Loading Test strait leg raising test positive at 30 degree , RT, Fabere test positive RT Sever tenderness over the Sacroiliac joint on the Right >L Assessment and Plan Plan: Assessment and plan = - Lumbar radiculopathy, lumbar spinal stenosis , lumbar spondylosis - diagnoses, prognosis, and treatment options including but not limited to physical therapy, surgical interventions, interventional therapies and medication management including narcotics and adjuvant medication were discussed with the patient and all questions answered to the patient's satisfaction. -medication refill= patient getting prescription refills from his primary care -procedure= patient will be scheduled to have repeat lumbar epidural steroid injection Time with Patient: Less than 30
== END | disposition home or self-care (01) ==
LOC: PNWHC3 14:49
PROVIDERS: ATTEND Specialist
DX: M48.06 Spinal stenosis, lumbar region (principal); M47.26 Other spondylosis with radiculopathy, lumbar region; F17.200 Nicotine dependence, unspecified, uncomplicated; Z79.891 Long term (current) use of opiate analgesic
CPT/HCPCS: 99211

== ENCOUNTER 2016-09-01 09:13 | Day surgery (SDC) | payer OTHER ==
[2016-08-31 10:57] VITALS: BMI 26.6
[~2016-09-01 09:13] MED LIST: LACTATED RINGERS 1,000 ML IV SCH
[2016-09-01 09:33] VITALS: BP 124/81; PULSE 106; RESP 16; TEMP 97.2
--- NOTE | 2016-09-01 09:45 | P.PN ---
Progress Note - Text This is a 40 years old male, with a chronic history of severe low back pain with radiation to the lower extremity, and he was diagnosed with lumbar spinal stenosis with lumbar radiculopathy and lumbar spondylosis, he is scheduled ,to have lumbar epidural steroid injections under fluoroscopy guidance, today in the preop holding area, although that the patient had cellulitis in the lower extremity bilaterally, and because patient supposed to have steroid injections today, I explained to the patient , that will be the best option is to cancel the procedure today and rescheduled, to the cellulitis is cured , the patient will follow up with his primary care, we will do the epidural steroid injections after he was treated for cellulitis
== END 2016-09-01 09:46 | disposition home or self-care (01) ==
LOC: ORPAIN 09:13
PROVIDERS: ATTEND Specialist
DX: M48.06 Spinal stenosis, lumbar region (principal); M47.26 Other spondylosis with radiculopathy, lumbar region; G89.29 Other chronic pain; M54.5 Low back pain; L03.116 Cellulitis of left lower limb; L03.115 Cellulitis of right lower limb